=== PATIENT | female | born 1960 | race Caucasian/White ===

== ENCOUNTER 2017-12-07 13:09 | Emergency (ER) | payer OTHER ==
[~2017-12-07] VITALS: Ht 170.2 cm; Wt 106.7 kg
[~2017-12-07 13:09] MED LIST: ACID CONTROL150 MG PO; ALL DAY ALLERGY10 M3 PO; ASPIR 8181 M1 PO; ASPIR-TRIN325 M1 PO; ATARAX,VISTARIL25 MG PO; BENTYL20 MG PO; CANASA1000 MG PR; CELEBREX100 MG PO; CELEBREX200 MG PO; CLONAZEPAM0.5 MG PO; CYMBALTA30 MG PO; DICLOFENAC SODI25 MG PO; DILAUDID2 MG PO; DONNATAL1 TABLET PO; EFFEXOR75 MG PO; FLONASE16 G1 BOTH NARES; FORTAMET500 M1 PO; HYDROCORT PR PR; HYDROCORT-PRAM1 EAC1 PR; HYDROXYZINE HCL25 MG PO; IMDUR30 MG PO; LEVEMIR FL100 UNIT/1 SC; LEVEMIR FL100 UNITS/ SC; LIORESAL5 MG PO; LIPITOR20 MG PO; Motrin PO; NEURONTIN100 MG PO; PANTOPRAZOLE SO40 MG PO; PROMETHAZINE HC25 M1 PO; PROTONIX40 MG PO; PULMICORT FLEX90 MCG IH; RANITIDINE HCL150 MG PO; SKELAXIN400 M1 PO; SULFASALAZINE500 MG PO; SYMAX DUOTAB0.375 MG PO; TIZANIDINE HCL4 M1 PO; TRAMADOL HCL50 MG PO; ULTRAM50 MG PO; VENLAFAXINE HC150 M1 PO; VENLAFAXINE HCL75 MG PO; VENTOLIN HFA18 GM IH; VITAMIN D2000 INTUN PO; VITAMIN D2000 UNIT PO; VITAMIN E400 UNIT PO; ZANAFLEX4 MG PO; ZOFRAN4 MG PO
[2017-12-07 13:35] LABS: HEMATOCRIT 50.2 % (36.0-46.0); HEMOGLOBIN 16.7 G/DL (11.9-15.5); MCH 28.7 PG (29.0-34.0); MCHC 33.3 G/DL (30.0-36.0); MCV 86.4 FL (83-99); PLATELET COUNT 240 K/uL (156-360); RBC DIS.WIDTH-CV 12.9 % (11.8-14.6); RBC DIS.WIDTH-SD 40.6 % (39-53); RED BLOOD COUNT 5.81 M/uL (3.80-5.20); WHITE BLOOD COUNT 9.6 K/uL (4.1-10.2)
[2017-12-07 13:37] LABS: ALBUMIN 4.4 g/dL (3.2-4.8); CHLORIDE 107 mEq/L (99-109); POTASSIUM 3.7 mEq/L (3.7-5.4); SODIUM 141 mEq/L (136-147)
[2017-12-07 13:40] LABS: GLUCOSE 102 mg/dL (70-99); TOTAL PROTEIN 7.5 g/dL (6.4-8.3)
[2017-12-07 13:41] LABS: TOTAL BILIRUBIN 0.8 mg/dL (0.0-1.0)
[2017-12-07 13:43] LABS: ALKALINE PHOSPHATASE 156 IU/L (3-129); CREATININE 0.9 mg/dL (0.6-1.3); GFR ESTIMATE (CALCULATED) > 59 mL/min/
[2017-12-07 13:44] LABS: UREA NITROGEN (BUN) 11 mg/dL (9-23)
[2017-12-07 13:45] LABS: AST (GOT) 19 IU/L (2-34)
[2017-12-07 13:46] LABS: ALT (GPT) 33 IU/L (3-49)
[2017-12-07] MEDS ORDERED: FLAGYL500 MG PO (16:16)
[2017-12-07] MEDS ORDERED: BACTRIM,SEPT1 TABLET PO (16:16)
[2017-12-07] MEDS ORDERED: ZOFRAN4 MG PO (16:17)
[2017-12-07 17:55] VITALS: BP 136/79
== END 2017-12-07 17:57 | disposition home or self-care (01) ==
LOC: EME 13:09
DX: K57.32 Diverticulitis of large intestine without perforation or abscess without bleeding (principal); L03.311 Cellulitis of abdominal wall; K50.90 Crohn's disease, unspecified, without complications; E11.9 Type 2 diabetes mellitus without complications; K21.9 Gastro-esophageal reflux disease without esophagitis; J45.909 Unspecified asthma, uncomplicated; F32.9 Major depressive disorder, single episode, unspecified; Z90.49 Acquired absence of other specified parts of digestive tract; Z87.891 Personal history of nicotine dependence; Z79.4 Long term (current) use of insulin; Z79.82 Long term (current) use of aspirin; Z88.1 Allergy status to other antibiotic agents; Z88.0 Allergy status to penicillin
CPT/HCPCS: 74177; 80053; 85027; 99281; 99285; J2405; J3010; J7030; S0030

== ENCOUNTER 2018-01-16 18:15 | Observation (INO) | payer OTHER ==
[~2018-01-16] VITALS: Ht 170.2 cm; Wt 97.8 kg
[~2018-01-16 18:15] MED LIST changes: +BACTRIM,SEPT1 TABLET PO; +CLONAZEPAM1 MG PO; +FLAGYL500 MG PO; +LANTUS 10100 UNITS/ SC; -LEVEMIR FL100 UNIT/1 SC
[2018-01-16 18:53] LABS: HEMATOCRIT 47.7 % (36.0-46.0); HEMOGLOBIN 16.5 G/DL (11.9-15.5); MCH 29.3 PG (29.0-34.0); MCHC 34.6 G/DL (30.0-36.0); MCV 84.7 FL (83-99); PLATELET COUNT 231 K/uL (156-360); RBC DIS.WIDTH-CV 13.2 % (11.8-14.6); RBC DIS.WIDTH-SD 41.1 % (39-53); RED BLOOD COUNT 5.63 M/uL (3.80-5.20); WHITE BLOOD COUNT 8.6 K/uL (4.1-10.2)
[2018-01-16 19:06] LABS: CHLORIDE 109 mEq/L (99-109); POTASSIUM 3.6 mEq/L (3.7-5.4); SODIUM 143 mEq/L (136-147)
[2018-01-16 19:07] LABS: GLUCOSE 94 mg/dL (70-99)
[2018-01-16 19:11] LABS: CREATININE 0.7 mg/dL (0.6-1.3); GFR ESTIMATE (CALCULATED) > 59 mL/min/
[2018-01-16 19:12] LABS: UREA NITROGEN (BUN) 6 mg/dL (9-23)
[2018-01-16 19:56] LABS: TROP-I INTERPRETATION NEGATIVE; TROPONIN-I < 0.01 ng/mL (0.0-0.30)
[2018-01-16] MEDS ORDERED: SYMBICORT60 INHALAT IH (21:40)
[2018-01-16] MEDS ORDERED: NORCO 5/3251 TABLET PO (21:42)
[2018-01-16] MEDS ORDERED: DEXILANT60 MG PO (21:43)
[2018-01-16] MEDS ORDERED: JARDIANCE25 MG PO (21:43)
[2018-01-16] MEDS ORDERED: MINOCIN100 MG PO (21:43)
[2018-01-16] MEDS ORDERED: COLESTID1 GM PO (21:43)
[2018-01-16] MEDS ORDERED: LEXAPRO20 MG PO (21:43)
[2018-01-16] MEDS ORDERED: REQUIP2 MG PO (21:44)
[2018-01-16] MEDS ORDERED: CARAFATE1 GM PO (21:44)
[2018-01-16] MEDS ORDERED: HUMALOG100 UNIT/2 SC (21:44)
[2018-01-16] MEDS ORDERED: SUPER B COMPL400 MCG PO (21:44)
[2018-01-16] MEDS ORDERED: VICTOZA0.6 MG/0.1 SC (21:45)
[2018-01-16 22:57] LABS: HDL CHOLESTEROL 46 MG/DL (Desirable>=50); LDL CHOLESTEROL 98 mg/dL (Desirable<100); NON-HDL CHOLESTEROL 133 mg/dL (Desirable<160); TOTAL CHOLESTEROL 179 mg/dL (Desirable<200); TRIGLYCERIDES 174 MG/DL (Normal: <150)
[2018-01-17 01:05] VITALS: BP 126/63
[2018-01-17 02:31] LABS: TROP-I INTERPRETATION NEGATIVE; TROPONIN-I < 0.01 ng/mL (0.0-0.30)
[2018-01-17 04:07] VITALS: BP 115/63
[2018-01-17 09:45] LABS: TROP-I INTERPRETATION NEGATIVE; TROPONIN-I < 0.01 ng/mL (0.0-0.30)
[2018-01-17 11:23] LABS: HEMOGLOBIN A1c (GLYCOHEMOGLOB) 6.9 % (Below 5.7)
[2018-01-17 17:01] VITALS: BP 131/67
[2018-01-17 20:20] VITALS: BP 127/65
[2018-01-18 00:16] VITALS: BP 106/60
[2018-01-18 04:46] VITALS: BP 118/56
[2018-01-18 08:09] VITALS: BP 122/59
[2018-01-18 12:15] VITALS: BP 124/62
== END 2018-01-18 15:22 | disposition home or self-care (01) ==
LOC: EME 18:15 → EDOF 21:50 → 5SOUTH 21:50 → EDOF 21:50 → ENRESERV 21:59 → 5SOUTH 01-17 00:52 → ENPENDDIS 01-18 13:15 → 5SOUTH 01-18 15:22
PROVIDERS: Emergency Medicine; Internal Medicine; Physician Assistant
DX: G43.109 Migraine with aura, not intractable, without status migrainosus (principal); R20.0 Anesthesia of skin; I10 Essential (primary) hypertension; E11.9 Type 2 diabetes mellitus without complications; K50.90 Crohn's disease, unspecified, without complications; F32.9 Major depressive disorder, single episode, unspecified; J45.909 Unspecified asthma, uncomplicated; F17.210 Nicotine dependence, cigarettes, uncomplicated; K21.9 Gastro-esophageal reflux disease without esophagitis; E78.5 Hyperlipidemia, unspecified; F41.9 Anxiety disorder, unspecified; M45.9 Ankylosing spondylitis of unspecified sites in spine; Z96.89 Presence of other specified functional implants; H43.392 Other vitreous opacities, left eye; Z90.49 Acquired absence of other specified parts of digestive tract; Z90.710 Acquired absence of both cervix and uterus; Z82.49 Family history of ischemic heart disease and other diseases of the circulatory system; Z84.1 Family history of disorders of kidney and ureter; Z80.0 Family history of malignant neoplasm of digestive organs; Z82.0 Family history of epilepsy and other diseases of the nervous system; Z88.0 Allergy status to penicillin; Z88.1 Allergy status to other antibiotic agents; Z79.4 Long term (current) use of insulin
CPT/HCPCS: 70450; 80048; 80061; 82948; 83036; 84484; 85027; 93005; 93306; 93880; 94640; 94640 76; 99202; 99281; 99285; G0378; J1650; J2405; J7030; Q0177

== ENCOUNTER → 2018-04-16 | Outpatient (CLI) | payer OTHER ==
[~2018-04-16] MED LIST changes: +CARAFATE1 GM PO; +COLESTID1 GM PO; +DEXILANT60 MG PO; +HUMALOG100 UNIT/2 SC; +JARDIANCE25 MG PO; +LEXAPRO20 MG PO; +MINOCIN100 MG PO; +NORCO 5/3251 TABLET PO; +REQUIP2 MG PO; +SUPER B COMPL400 MCG PO; +SYMBICORT60 INHALAT IH; +VICTOZA0.6 MG/0.1 SC
== END | disposition home or self-care (01) ==
LOC: EEG 09:00
DX: G45.9 Transient cerebral ischemic attack, unspecified (principal)
CPT/HCPCS: 95819

== ENCOUNTER 2018-05-16 17:58 | Emergency (ER) | payer OTHER ==
[~2018-05-16] VITALS: Ht 170.2 cm; Wt 102.0 kg
[2018-05-16 19:08] LABS: HEMATOCRIT 49.2 % (36.0-46.0); HEMOGLOBIN 16.6 G/DL (11.9-15.5); MCH 29.5 PG (29.0-34.0); MCHC 33.7 G/DL (30.0-36.0); MCV 87.5 FL (83-99); PLATELET COUNT 237 K/uL (156-360); RBC DIS.WIDTH-CV 13.3 % (11.8-14.6); RBC DIS.WIDTH-SD 42.6 % (39-53); RED BLOOD COUNT 5.62 M/uL (3.80-5.20)
[2018-05-16 19:14] LABS: ALBUMIN 4.5 g/dL (3.2-4.8)
[2018-05-16 19:15] LABS: CHLORIDE 102 mEq/L (99-109); POTASSIUM 4.2 mEq/L (3.7-5.4); SODIUM 139 mEq/L (136-147)
[2018-05-16 19:17] LABS: GLUCOSE 105 mg/dL (70-99); TOTAL PROTEIN 7.7 g/dL (6.4-8.3)
[2018-05-16 19:19] LABS: TOTAL BILIRUBIN 0.3 mg/dL (0.0-1.0)
[2018-05-16 19:20] LABS: ALKALINE PHOSPHATASE 109 IU/L (3-129); CREATININE 0.8 mg/dL (0.6-1.3); GFR ESTIMATE (CALCULATED) > 59 mL/min/
[2018-05-16 19:22] LABS: AST (GOT) 19 IU/L (2-34); UREA NITROGEN (BUN) 9 mg/dL (9-23)
[2018-05-16 19:23] LABS: ALT (GPT) 32 IU/L (3-49)
[2018-05-16 19:24] LABS: LIPASE 27 U/L (1.0-51.0)
[2018-05-16 20:11] LABS: APPEARANCE CLEAR ((CLEAR)); BILIRUBIN NEGATIVE; BLOOD NEGATIVE; COLOR YELLOW ((YELLOW)); GLUCOSE (STRIP) >=500; KETONES NEGATIVE; LEUKOCYTES TRACE; NITRITE NEGATIVE; PROTEIN (STRIP) NEGATIVE; SPECIFIC GRAVITY 1.016 (1.000-1.030); UROBILINOGEN 0.2 MG/DL (0.2-1.0)
[2018-05-16 20:43] LABS: BACTERIA NONE SEEN /HPF; EPITHELIAL CELLS RARE /HPF; MUCUS NONE SEEN /LPF; UCUL ADDED? NO; WHITE BLOOD CELLS 0-5 /HPF (0-5)
[2018-05-16] MEDS ORDERED: REGLAN10 MG PO (23:08)
[2018-05-16] MEDS ORDERED: MOTRIN800 MG PO (23:08)
[2018-05-16 23:46] VITALS: BP 150/69
== END 2018-05-16 23:47 | disposition home or self-care (01) ==
LOC: RME 17:58 → EME 17:58 → RME 23:47
DX: R10.84 Generalized abdominal pain (principal); D72.829 Elevated white blood cell count, unspecified; K50.911 Crohn's disease, unspecified, with rectal bleeding; J45.909 Unspecified asthma, uncomplicated; F32.9 Major depressive disorder, single episode, unspecified; E11.9 Type 2 diabetes mellitus without complications; K21.9 Gastro-esophageal reflux disease without esophagitis; Z87.891 Personal history of nicotine dependence; Z79.4 Long term (current) use of insulin; Z88.0 Allergy status to penicillin; Z88.1 Allergy status to other antibiotic agents
CPT/HCPCS: 74177; 80053; 81003; 83690; 85027; 99281; 99284; J1885; J2765; J3010; J7030